=== PATIENT | female | born 1950 | race Caucasian/White ===

== ENCOUNTER 2021-02-12 19:35 | Emergency (ER) | payer OTHER ==
[~2021-02-12] VITALS: Ht 162.6 cm; Wt 54.4 kg
[2021-02-12 19:40] VITALS: BP_SYST 132
--- NOTE | 2021-02-12 19:40 | NUR ---
Patient to ER bed 3 to gown for evaluation. Side rails up. Report given to BERENIEC MISTRY.
--- NOTE | 2021-02-12 19:41 | NUR ---
Came in ER ambulatory from from home this 70 year old female, AAOX4, breathng spoantaneosly at room air, not in distress noted. With chief complaints of Bilateral knee pain and lower back pain several days, not relieve by advil. History of HTN, no known surgical history, no known allergy
--- NOTE | 2021-02-12 19:43 | NUR ---
ER at bedside examining patient.
--- NOTE | 2021-02-12 19:47 | NUR ---
technology specialist at bedside
[2021-02-12] MEDS ORDERED: KETOROLAC TROMETHAMINE 30 MG VIAL IM ONE (20:00)
[2021-02-12] MEDS ORDERED: HYDROcodone/ACETAMIN 7.5-325 MG TAB PO ONE (20:00)
--- NOTE | 2021-02-12 20:10 | NUR ---
security system technician at bedside, blood drawn
[2021-02-12 20:20] LABS: BASOPHILS # (AUTO) 0.2 K/uL (0.0-0.2); BASOPHILS % (AUTO) 1.3 % (0.0-2.0); EOSINOPHILS # (AUTO) 0.7 K/uL (0.0-0.4); EOSINOPHILS % (AUTO) 4.9 % (0.0-4.0); HEMATOCRIT 34.3 % (36-48); HEMOGLOBIN 11.4 g/dL (12.0-16.0); LYMPHOCYTES # (AUTO) 2.1 K/uL (1.0-5.5); LYMPHOCYTES % (AUTO) 15.1 % (20.5-51.5); MEAN CORPUSCULAR HEMOGLOBIN 30 pg (27-31); MEAN CORPUSCULAR HGB CONC 33 % (32-36); MEAN CORPUSCULAR VOLUME 91 fL (79.0-98.0); MONOCYTES % (AUTO) 7.1 % (1.7-9.3); NEUTROPHILS # (AUTO) 9.9 K/uL (1.8-7.7); NEUTROPHILS % (AUTO) 71.6 % (40.0-70.0); PLATELET COUNT (AUTO) 447 K/uL (130-430); RED BLOOD CELL COUNT(AUTO) 3.78 MIL/uL (4.2-6.2); RED CELL DISTRIBUTION WIDTH 13.2 % (9.0-15.0); WHITE BLOOD COUNT (AUTO) 13.8 K/uL (4.8-10.8)
[2021-02-12 20:37] LABS: C-REACTIVE PROTEIN QUANT 3.5 mg/dL (0-0.5)
[2021-02-12 20:44] LABS: PROTHROMBIN TIME 10.9 SECS (9.5-12.5)
[2021-02-12 20:46] LABS: ALBUMIN 3.2 g/dL (3.4-4.8); CREATININE 0.88 mg/dL (0.55-1.30); POTASSIUM 3.6 mmol/L (3.5-5.1); TOTAL BILIRUBIN 0.2 mg/dL (0.0-1.0); URIC ACID 3.9 mg/dL (2.4-7.0)
[2021-02-12 20:59] LABS: ERYTHROCYTE SEDIMENTATION RATE 39 MM/HR (0-20)
[2021-02-12] MEDS ORDERED: VANCOMYCIN HCL 1,000 MG in NS 250 ML IV ONE (21:15)
--- NOTE | 2021-02-12 21:15 | NUR ---
Re-assesed by Dr. Patino, for antibiotic prior discharge
[2021-02-12] MEDS ORDERED: HYDR-3917 PO (21:16)
[2021-02-12] MEDS ORDERED: IBUP-1969 PO (21:16)
[2021-02-12] MEDS ORDERED: VANCOMYCIN HCL 1000 MG/VIAL IV ONE (21:50)
[2021-02-12 23:57] VITALS: BP_SYST 131
--- NOTE | 2021-02-12 23:57 | NUR ---
Patient given written and verbal discharge instructions and verbalizes understanding. ER MD discussed with patient the results and treatment provided. Patient in stable condition. ID arm band removed. IV catheter removed intact and dressing applied, no active bleeding. Rx of NOrco and ibuprofen given. Patient educated on pain management and to follow up with PMD. Pain Scale 0/10. Opportunity for questions provided and answered. Medication side effect fact sheet provided. Instructed by Dr. PENA to come back tomorrow at 2pm for knee tapping.
== END 2021-02-12 23:57 | disposition home or self-care (01) ==
LOC: SED 19:35
DX: M54.5 Low back pain (principal); M25.561 Pain in right knee; M25.562 Pain in left knee; D72.829 Elevated white blood cell count, unspecified
CPT/HCPCS: 36415; 72100; 73560; 80053; 84550; 85025; 85610; 85651; 85730; 86140; 96365; 96372; 99284; J1885; J3370

== ENCOUNTER 2021-02-13 13:56 | Emergency (ER) | payer OTHER ==
[~2021-02-13] VITALS: Ht 162.6 cm; Wt 54.4 kg
[~2021-02-13 13:56] MED LIST: HYDR-3917 PO; IBUP-1969 PO
--- NOTE | 2021-02-13 14:30 | NUR ---
Pt triaged and placed in waiting room
--- NOTE | 2021-02-13 14:45 | NUR ---
Pt walked in to ER with for re-check, was seen here yesterday with c/o bilat knee pain and swelling x2 weeks. Pt denies any pain or discomfort at this time. V/S stable, no acute distress noted.
--- NOTE | 2021-02-13 14:50 | NUR ---
ER Dr. Patino at bedside examining patient.
[2021-02-13 15:18] LABS: BASOPHILS # (AUTO) 0.1 K/uL (0.0-0.2); EOSINOPHILS # (AUTO) 0.6 K/uL (0.0-0.4); EOSINOPHILS % (AUTO) 4.8 % (0.0-4.0); HEMATOCRIT 34.9 % (36-48); HEMOGLOBIN 11.8 g/dL (12.0-16.0); LYMPHOCYTES # (AUTO) 2.1 K/uL (1.0-5.5); MEAN CORPUSCULAR HEMOGLOBIN 30 pg (27-31); MEAN CORPUSCULAR HGB CONC 34 % (32-36); MEAN CORPUSCULAR VOLUME 89 fL (79.0-98.0); MONOCYTES # (AUTO) 0.9 K/uL (0.0-1.0); MONOCYTES % (AUTO) 7.7 % (1.7-9.3); NEUTROPHILS % (AUTO) 68.5 % (40.0-70.0); PLATELET COUNT (AUTO) 439 K/uL (130-430); RED BLOOD CELL COUNT(AUTO) 3.93 MIL/uL (4.2-6.2); RED CELL DISTRIBUTION WIDTH 13.1 % (9.0-15.0); WHITE BLOOD COUNT (AUTO) 11.7 K/uL (4.8-10.8)
[2021-02-13 16:03] VITALS: BP_SYST 145
[2021-02-13 16:08] VITALS: BP_SYST 145
--- NOTE | 2021-02-13 16:10 | NUR ---
Patient given written and verbal discharge instructions and verbalizes understanding. ER MD discussed with patient the results and treatment provided. Patient in stable condition. ID arm band removed. Rx of Motrin, Corwith and Clindomyacin given. Patient educated on pain management and to follow up with PMD. Pain Scale 0. Opportunity for questions provided and answered. Medication side effect fact sheet provided.
== END 2021-02-13 16:08 | disposition home or self-care (01) ==
LOC: SED 13:56
DX: M17.0 Bilateral primary osteoarthritis of knee (principal); Z79.899 Other long term (current) drug therapy
CPT/HCPCS: 36415; 85025; 86140; 99284

== ENCOUNTER 2021-02-16 07:34 | Emergency (ER) | payer OTHER ==
[~2021-02-16] VITALS: Ht 162.6 cm; Wt 54.4 kg
[2021-02-16 07:34] VITALS: BP_SYST 163
--- NOTE | 2021-02-16 07:34 | NUR ---
BROUGHT BACK TO BED #4 AND TRIAGED. REPORT GIVEN TO [facility]. DR PENA AT BEDSIDE FOR EVALUATION
--- NOTE | 2021-02-16 07:35 | NUR ---
Pt walked in to ER today for recheck, pt was here last weekend with c/o bilat knee swelling and pain. Denies any pain or swelling at this time. V/S stable, no acute distress noted.
--- NOTE | 2021-02-16 07:40 | NUR ---
ER Dr. Patino at bedside examining patient.
--- NOTE | 2021-02-16 07:49 | NUR ---
LABORATORY AT BEDSIDE FOR LAB DRAW
[2021-02-16 08:06] LABS: BASOPHILS % (AUTO) 0.2 % (0.0-2.0); EOSINOPHILS # (AUTO) 0.6 K/uL (0.0-0.4); EOSINOPHILS % (AUTO) 6.3 % (0.0-4.0); HEMATOCRIT 35.6 % (36-48); HEMOGLOBIN 12.2 g/dL (12.0-16.0); LYMPHOCYTES # (AUTO) 1.9 K/uL (1.0-5.5); LYMPHOCYTES % (AUTO) 21.4 % (20.5-51.5); MEAN CORPUSCULAR HEMOGLOBIN 30 pg (27-31); MEAN CORPUSCULAR HGB CONC 34 % (32-36); MEAN CORPUSCULAR VOLUME 89 fL (79.0-98.0); MONOCYTES # (AUTO) 0.7 K/uL (0.0-1.0); MONOCYTES % (AUTO) 7.6 % (1.7-9.3); NEUTROPHILS # (AUTO) 5.7 K/uL (1.8-7.7); NEUTROPHILS % (AUTO) 64.5 % (40.0-70.0); PLATELET COUNT (AUTO) 412 K/uL (130-430); RED BLOOD CELL COUNT(AUTO) 4.03 MIL/uL (4.2-6.2); RED CELL DISTRIBUTION WIDTH 13.4 % (9.0-15.0); WHITE BLOOD COUNT (AUTO) 8.9 K/uL (4.8-10.8)
[2021-02-16 09:27] VITALS: BP_SYST 163
--- NOTE | 2021-02-16 09:30 | NUR ---
Patient given written and verbal discharge instructions and verbalizes understanding. ER MD discussed with patient the results and treatment provided. Patient in stable condition. ID arm band removed. No prescriptions given. Patient educated on pain management and to follow up with PMD. Pain Scale 0. Opportunity for questions provided and answered. Medication side effect fact sheet provided.
== END 2021-02-16 09:30 | disposition home or self-care (01) ==
LOC: SED 07:34
DX: M25.561 Pain in right knee (principal); M25.562 Pain in left knee; Z79.899 Other long term (current) drug therapy
CPT/HCPCS: 36415; 85025; 86140; 99283

== ENCOUNTER 2021-04-11 18:42 | Emergency (ER) | payer OTHER ==
[~2021-04-11] VITALS: Ht 162.6 cm; Wt 54.4 kg
[2021-04-11 18:45] VITALS: BP_SYST 116
[2021-04-11] MEDS ORDERED: KETOROLAC TROMETHAMINE 30 MG VIAL IM ONE (22:15)
[2021-04-11] MEDS ORDERED: NEU300 PO (23:19)
[2021-04-11] MEDS ORDERED: MOB7.5 PO (23:19)
[2021-04-11 23:30] VITALS: BP_SYST 135
== END 2021-04-11 23:30 | disposition home or self-care (01) ==
LOC: SED 18:42
DX: M54.2 Cervicalgia (principal); M79.601 Pain in right arm; M79.602 Pain in left arm; Z79.899 Other long term (current) drug therapy
CPT/HCPCS: 72040; 73030; 96372; 99284; J1885